=== PATIENT | male | born 1945 | race Caucasian/White ===

== ENCOUNTER 2019-11-24 09:24 | Outpatient (CLI) | payer MEDICARE, OTHER, SELFPAY ==
--- NOTE | ~2019-11-24 | US_ITS ---
EXAMINATION: US aorta [facility] DATE: 11/24/2019 10:22 INDICATION: Abdominal aortic aneurysm screening TECHNIQUE: Grayscale, color Doppler, and pulsed Doppler images of the aorta and common iliac arteries were obtained. COMPARISON: 03/11/2010 FINDINGS: The proximal aorta measures 2.5 cm AP. The mid aorta measures 2.1 cm. The distal aorta measures 1.8 c m. The right common iliac artery measures 1.5 cm. The left common iliac artery measures 1.6 cm. IMPRESSION: 1. Normal caliber abdominal aorta. Reviewed, dictated and finalized at location A.
== END 2019-11-24 09:25 | disposition home or self-care (01) ==
LOC: ANHIMG 09:30
PROVIDERS: PCP Family Medicine; Visit Provider Family Medicine
DX: Z13.6 Encounter for screening for cardiovascular disorders (principal)
CPT/HCPCS: 76706

== ENCOUNTER 2020-07-07 13:48 | Outpatient (CLI) | payer MEDICARE, OTHER, SELFPAY ==
--- NOTE | 2020-07-07 15:20 | ECG_ITS ---
Measurements Intervals [place] Rate: 46 P: 63 [place]: 204 QRS: -9 QRSD: 115 T: 2 QT: 422 QTc: 370 Interpretive Statements SINUS BRADYCARDIA WITH SINUS ARRHYTHMIA ATRIAL PREMATURE COMPLEX DELAYED PRECORDIAL R/S TRANSITION INFERIOR INFARCT, AGE INDETERMINATE BASELINE ARTIFACT- I, II, III, AVR, AVL, AVF ABNORMAL ECG Electronically Signed On 07-07-2020 15:47:25 CDT by Abad Francisco D.O.
[2020-07-07 15:51] LABS: Basophils Percent Auto 0.6 % (0.2-1.2); Eosinophils Absolute Auto 0.1 K/mm3 (0-0.3); Eosinophils Percent Auto 2.7 % (0-4.4); Hematocrit 42.3 % (42.0-52.0); Hemoglobin 14.4 g/dL (14.0-18.0); Immature Granulocyte Absolute 0.01 K/mm3 (0.00-0.031); Immature Granulocyte Percent A 0.2 % (0-0.5); Lymphocytes Absolute Auto 1.41 K/mm3 (0.9-3.2); Lymphocytes Percent Auto 27.3 % (18.3-44.2); Mean Corpuscular Hemoglobin 33.2 pg (26-34); Mean Corpuscular Volume 97.5 fl (80-100); Mean Platelet Volume 10.9 fl (7.4-10.4); Monocytes Absolute Auto 0.5 K/mm3 (0.1-0.6); Monocytes Percent Auto 9.9 % (2.6-8.5); Neutrophils Absolute Auto 3.1 K/mm3 (1.3-6.7); Neutrophils Percent Auto 59.3 % (45.5-73.1); Platelet Count Result 155 k/mm3 (150-375); Red Blood Count 4.34 M/mm3 (4.6-6.20); Red Cell Distribution Width 13.4 % (11.5-14.5); White Blood Count 5.2 K/mm3 (4.5-10.0)
[2020-07-07 15:59] LABS: Albumin Level 4.7 g/dL (3.5-5.1)
[2020-07-07 16:01] LABS: Hemoglobin A1C 5.4 % (<5.7)
[2020-07-07 16:02] LABS: Anion Gap 9 mmol/L (8-16); Blood Urea Nitrogen 18 mg/dL (9-20); Calcium 9.5 mg/dL (8.4-10.2); Carbon Dioxide 28 mmol/L (22-30); Chloride 105 mmol/L (98-107); Estimated Glomerular Filt Rate > 60; Glucose 94 mg/dL (75-110); Sodium 142 mmol/L (137-145)
[2020-07-07 16:05] LABS: Urine Cotinine NEGATIVE
== END 2020-07-07 13:49 | disposition home or self-care (01) ==
LOC: ANHSURGERY 13:53
PROVIDERS: Anesthesiology; PCP Family Medicine; Visit Provider Orthopaedic Surgery
DX: M16.11 Unilateral primary osteoarthritis, right hip (principal); Z79.899 Other long term (current) drug therapy; Z01.818 Encounter for other preprocedural examination; R94.31 Abnormal electrocardiogram [ECG] [EKG]
CPT/HCPCS: 36415; 80048; 80307; 82040; 83036; 85025; 86850; 86900; 86901; 93005

== ENCOUNTER 2020-07-15 01:09 | Outpatient (CLI) | payer MEDICARE, OTHER, SELFPAY ==
[2020-07-15 22:26] LABS: SARS-CoV-2 RNA PCR Negative
== END 2020-07-15 01:10 | disposition home or self-care (01) ==
LOC: ANHCOVIDDT 01:09
PROVIDERS: PCP Family Medicine; Visit Provider Orthopaedic Surgery
DX: Z01.818 Encounter for other preprocedural examination (principal); Z20.828 Contact with and (suspected) exposure to other viral communicable diseases
CPT/HCPCS: 87635; C9803; U0003

== ENCOUNTER 2021-08-20 02:06 | Day surgery (SDC) | payer MEDICARE, OTHER, SELFPAY ==
[2021-08-08 13:25] VITALS: BMI 28.1
[2021-08-20 09:11] VITALS: BP 152/65; PULSE 96; RESP 18; TEMP 36.3; O2SAT 100; BMI 28.3
[2021-08-20] MEDS: LACTATED RINGERS 1,000 ML 150 ML IV CONT (09:17)
--- NOTE | 2021-08-20 09:23 | WPDGICN ---
Assessment and Plan Assessment and plan (1) History of colon polyps: Code(s): Z86.010 - Personal history of colonic polyps Status: Acute Assessment and Plan: Patient has a prior history of colon polyps. For this reason surveillance colonoscopy is advised. Further recommendations will be given after endoscopy. GI Consult Note Consult date/time: 08/20/21 09:23 HPI: Guilherme Reed is a 76 year old male Presents for colonoscopy. Patient has a prior history of colon polyps. Most recently polyps removed in 2016. Patient presents for follow-up screening colonoscopy at this time. Patient reports that he recently had an extended period of diarrhea. This improved 1 week ago when he stopped turmeric supplementation. After stopping this supplement he noticed diarrhea has improved dramatically over the last 1 week. Patient denies any bleeding. He has no abdominal pain. His weight has remained stable. Review of Systems Review of Systems: All systems reviewed & are unremarkable except as noted in HPI and below PMFSH Family History Family History Other Cerebrovascular accident Diabetes mellitus Family history of cardiovascular disease Hypertension Social History Social History Smoking packs per day: 1 Smoking cigarettes per day: 20.0 Years smoked: 13 Smoking pack-years: 13.00 Smoking status: Former smoker Tobacco type: cigarettes Smoking end date: 01/20/76 Alcohol intake: current Alcohol use details: rarely Substance use: never Living arrangements: with family Spiritual care concerns: No Meds Home Medications and Allergies Home Medications Medication Instructions Recorded Confirmed Type ascorbic acid (vitamin C) 1 g PO BID 07/07/20 08/08/21 History aspirin [Aspir-81] 81 mg PO HS 07/07/20 08/08/21 History cetirizine [Zyrtec] 10 mg PO QAM 07/07/20 08/08/21 History cholecalciferol (vitamin D3) 50 mcg PO QAM 07/07/20 08/08/21 History [Vitamin D3] coenzyme Q10 [Co Q-10] 200 mg PO QAM 07/07/20 08/08/21 History ezetimibe 10 mg PO QAM 07/07/20 08/08/21 History fluticasone propionate 2 spray INTRANASAL QAM 07/07/20 08/08/21 History glucosamine CHr-jlu-juovmsurbv 1 tablet PO BID 07/07/20 08/08/21 History lisinopril 20 mg PO QAM 07/07/20 08/08/21 History loratadine [Claritin] 10 mg PO HS 07/07/20 08/08/21 History lysine [L-Lysine] 1,000 mg PO QAM 07/07/20 08/08/21 History metoprolol succinate 25 mg PO QAM 07/07/20 08/08/21 History multivitamin with minerals 0.5 tablet PO DAILY 07/07/20 08/08/21 History [Multiple Vitamin-Minerals] nitroglycerin [Nitrostat] 0.4 mg SUBLINGUAL ONCE PRN 07/07/20 08/08/21 History ztylx-5n-odb-epa-fish oil [Fish 720 cap PO BID 07/07/20 08/08/21 History Oil] triamterene-hydrochlorothiazid 0.25 tablet PO 5XW 07/07/20 08/08/21 History turmeric root extract 2,000 mg PO DAILY 07/07/20 08/08/21 History vitamin B complex [Vitamin B 1 tablet PO DAILY 07/07/20 08/08/21 History Complex-100] Allergies Allergy/AdvReac Type Severity Reaction Status Date / Time atorvastatin Allergy Unknown Muscle Pain Verified 08/20/21 09:10 pitavastatin Allergy Unknown Muscle Pain Verified 08/20/21 09:10 rosuvastatin Allergy Unknown Muscle Pain Verified 08/20/21 09:10 simvastatin Allergy Unknown Muscle Pain Verified 08/20/21 09:10 Sulfa (Sulfonamide Allergy Unknown Anaphylaxis Verified 08/20/21 09:10 Antibiotics) Abohydm-IMO-GcP Reductase AdvReac Intermediate ACHY, Verified 08/20/21 09:10 Inhibitor INTESTINAL [Dkxafgy-Wau-Kvb Reductase DISTRESS Inhibitor] Vital Signs Vital Signs - 24 hr 08/20/21 09:11 Temperature 97.4 F L Pulse Rate 96 Respiratory Rate 18 Blood Pressure 152/65 H Pulse Oximetry 100 Exam Narrative: Physical exam reveals patient to be alert. Vital signs stable. HEENT exam is unremarkable. Patient is anic
--- NOTE | 2021-08-20 09:44 | WPDANESEPPF ---
Anes - Initial Pre Proc Eval Procedure: Operation Date: 08/20/21 10:00 Proposed Procedures p Screening Colonoscopy - Diego Gallegos MD Date/Time: 08/20/21 09:44 Surgeon: Diego Gallegos MD Pre Op Diagnosis: hx of colon polyps Patient Data Age: 76 Gender: M Height: 1.73 m Weight: 84.4 kg Last Vital Signs Temp 36.3 C L 08/20/21 09:11 Pulse 96 08/20/21 09:11 Resp 18 08/20/21 09:11 BP 152/65 H 08/20/21 09:11 Pulse Ox 100 08/20/21 09:11 Allergies Allergy/AdvReac Type Severity Reaction Status Date / Time atorvastatin Allergy Unknown Muscle Pain Verified 08/20/21 09:10 pitavastatin Allergy Unknown Muscle Pain Verified 08/20/21 09:10 rosuvastatin Allergy Unknown Muscle Pain Verified 08/20/21 09:10 simvastatin Allergy Unknown Muscle Pain Verified 08/20/21 09:10 Sulfa (Sulfonamide Allergy Unknown Anaphylaxis Verified 08/20/21 09:10 Antibiotics) Ailjrva-NAA-BrJ Reductase AdvReac Intermediate ACHY, Verified 08/20/21 09:10 Inhibitor INTESTINAL [Scnxbcn-Gjk-Xfr Reductase DISTRESS Inhibitor] Home Medications Medication Instructions Recorded Confirmed Type ascorbic acid (vitamin C) 1 g PO BID 07/07/20 08/08/21 History aspirin [Aspir-81] 81 mg PO HS 07/07/20 08/08/21 History cetirizine [Zyrtec] 10 mg PO QAM 07/07/20 08/08/21 History cholecalciferol (vitamin D3) 50 mcg PO QAM 07/07/20 08/08/21 History [Vitamin D3] coenzyme Q10 [Co Q-10] 200 mg PO QAM 07/07/20 08/08/21 History ezetimibe 10 mg PO QAM 07/07/20 08/08/21 History fluticasone propionate 2 spray INTRANASAL QAM 07/07/20 08/08/21 History glucosamine MEp-sqb-rposdmrwuz 1 tablet PO BID 07/07/20 08/08/21 History lisinopril 20 mg PO QAM 07/07/20 08/08/21 History loratadine [Claritin] 10 mg PO HS 07/07/20 08/08/21 History lysine [L-Lysine] 1,000 mg PO QAM 07/07/20 08/08/21 History metoprolol succinate 25 mg PO QAM 07/07/20 08/08/21 History multivitamin with minerals 0.5 tablet PO DAILY 07/07/20 08/08/21 History [Multiple Vitamin-Minerals] nitroglycerin [Nitrostat] 0.4 mg SUBLINGUAL ONCE PRN 07/07/20 08/08/21 History ciwhk-4q-bxo-epa-fish oil [Fish 720 cap PO BID 07/07/20 08/08/21 History Oil] triamterene-hydrochlorothiazid 0.25 tablet PO 5XW 07/07/20 08/08/21 History turmeric root extract 2,000 mg PO DAILY 07/07/20 08/08/21 History vitamin B complex [Vitamin B 1 tablet PO DAILY 07/07/20 08/08/21 History Complex-100] Patient hx anesthesia problems: none Family hx anesthesia problems: none Results Review: All pre-operative results and documents have been reviewed as part of the pre-operative evaluation. [facility] Past Medical History Medical History (Updated 08/20/21 @ 09:44 by Madhu Shoemaker MD) CAD (coronary artery disease) HTN (hypertension) Hyperlipidemia Surgical History Surgical History History of coronary artery stent placement Family History Family History Other Cerebrovascular accident Diabetes mellitus Family history of cardiovascular disease Hypertension Social History Social History Smoking packs per day: 1 Smoking cigarettes per day: 20.0 Years smoked: 13 Smoking pack-years: 13.00 Smoking status: Former smoker Tobacco type: cigarettes Smoking end date: 01/20/76 Alcohol intake: current Alcohol use details: rarely Substance use: never Living arrangements: with family Spiritual care concerns: No Anes - Eval Final PreProcedure Day of Procedure 08/20/21 09:44 Patient weight: overweight Heart: regular rate and rhythm Lungs: clear to auscultation Airway: Mallampati scale class II Neurological: alert and oriented Last oral intake: >/= 8 hours ASA classification: III Emergent: no Anesthetic plan: proceed Anesthesia type and monitoring: general GIVS and standard monitoring Results Review: All pre-op
--- NOTE | 2021-08-20 10:12 | SUR.OPER ---
Lev not working properly after time out. Procedure start delayed until Lev switched out.
[2021-08-20 10:31] VITALS: BP 115/69; PULSE 48; RESP 14; O2SAT 97
[2021-08-20 10:41] VITALS: BP 114/71; PULSE 51; RESP 16; O2SAT 100
[2021-08-20 10:51] VITALS: BP 120/66; PULSE 52; RESP 16; O2SAT 100
== END 2021-08-20 11:09 | disposition home or self-care (01) ==
PROVIDERS: PCP Family Medicine; Visit Provider Internal Medicine Gastroenterology
PROC: 0DJD8ZZ Inspection of Lower Intestinal Tract, Via Natural or Artificial Opening Endoscopic (ICD-10-PCS; CPT 45378; principal; 2021-08-20 10:00)
DX: Z12.11 Encounter for screening for malignant neoplasm of colon (principal); D12.5 Benign neoplasm of sigmoid colon; K57.30 Diverticulosis of large intestine without perforation or abscess without bleeding; Z87.891 Personal history of nicotine dependence
CPT/HCPCS: 45385; 88305; J2704; J7120

== ENCOUNTER 2023-12-10 11:00 | Outpatient (RCR) | payer MEDICARE, OTHER, SELFPAY ==
--- NOTE | 2023-11-04 13:21 | OPREHPOC ---
Outpatient Therapy Plan of Care This is a Multidisciplinary Plan of Care that may contain components documented by all disciplines (PT, OT, and ST.) PT Problem 1 PT Problem #1 Knowledge Deficit PT Goal 1 Goal *indep with HEP PT Problem 2 PT Problem #2 Pain PT Goal 1 Goal 1* pain rating at worst 1/10 with increased activity level PT Problem 3 PT Problem #3 Impaired Flexibility PT Goal 1 Goal increase R hip and knee muscle flexibility, to improve tracking of patella and decrease pain: 1* hamstring length with supine SLR 60' 2* piriformis length with supine stretch without reports of tightness, cross midline of body 3* anterior hip/quad length with prone knee flexion 105'
--- NOTE | 2023-11-04 13:21 | PTOPEVAL1 ---
Assessment and note entered by Danya Gonzales, PT Evaluation Information Assessment Status Evaluation Diagnosis R knee chondromalacia Onset Sep 2023 Subjective Information In Sep, after taking a trip out of town, starting having more knee pain; not related to any trauma; have history of R ankle injury and R knee pain. 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 He reports chronic R knee pain, with swelling and did not have any recent trauma or injury to knee, onset after traveling out of town, about 6 hour car trip. 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 With the evaluation: he has tightness over R hamstring, quad and piriformis muscles; does not have any tenderness with palpation over R knee; active knee ROM is WNL and does not increase pain. Skilled PT services are indicated for patellar chondromalacia treatment: increase flexibility of musculature over knee/hip with education to pt for HEP and positioning of knee. Modalities PRN for pain and edema. Plan of Care Interventions Electrical Stimulation,Hot Pack/Cold Pack, Intermittent Compression,Manual Therapy,Neuro Re- education,Patient/Caregiver Educati,Therapeutic Activities,Therapeutic Exercise,Ultrasound,Other Other Interventions taping, [facility] PT Services Indicated Yes Treatment Frequency and 1x/wk for 5 visits Duration These treatments will address the objective and functional deficits as defined above. The patient will be advanced safely and appropriately in order for the patient to progress towards his/her prior level of function. Additional exercises will
--- NOTE | 2023-12-10 11:31 | PTOPDC ---
Assessment and note entered by Danya Gonzales, PT Discharge Information Assessment Status Discharge Diagnosis R knee chondromalacia Onset Sep 2023 Subjective Information knee is better; returned to going on the [employer] steps, able to do 4 times without any problems; doing the exercises at home, am surprised that my balance needs work too. Reported Pain Level Pain Score Self Report Additional Pain Score Comments no pain for the past few weeks in knee; no swelling in knee Assessment PT Clinical Summary Armando has received 6 PT sessions. Compared to the initial eval: pain at the worst has decreased from 1 to 0/10; increase flexibility and strength of R knee; education completed for HEP; The goals were achieved. Discharge PT services, and he will continue with his HEP. Plan of Care PT Services Indicated No
== END 2023-12-10 12:32 | disposition home or self-care (01) ==
LOC: ANHPT 11:00
PROVIDERS: PCP Family Medicine; Visit Provider Orthopaedic Surgery
DX: M94.261 Chondromalacia, right knee (principal)
CPT/HCPCS: 97110; 97112; 97161; 97530